=== PATIENT | female | born 1965 | race Caucasian/White ===

== ENCOUNTER → 2019-02-11 | Outpatient (CLI) | payer OTHER | END | disposition home or self-care (01) | LOC: CFH 14:01 | PROVIDERS: ATTEND Family Medicine | DX: Z12.31 Encounter for screening mammogram for malignant neoplasm of breast (principal) | CPT/HCPCS: 77063; 77067 ==

== ENCOUNTER 2020-06-17 16:01 | Outpatient (CLI) | payer OTHER | END 2020-06-17 23:59 | disposition home or self-care (01) | LOC: CFH 16:01 | PROVIDERS: ATTEND Family Medicine | DX: Z12.31 Encounter for screening mammogram for malignant neoplasm of breast (principal) | CPT/HCPCS: 77067 ==

== ENCOUNTER → 2020-11-12 | Outpatient (CLI) | payer OTHER | END | disposition home or self-care (01) | LOC: RAD 12:53 | PROVIDERS: ATTEND Family Medicine | DX: J81.1 Chronic pulmonary edema (principal) | CPT/HCPCS: 71046 ==

== ENCOUNTER 2020-12-04 09:20 | Outpatient (CLI) | payer OTHER | END 2020-12-04 23:59 | disposition home or self-care (01) | LOC: CFH 09:20 | PROVIDERS: ATTEND Family Medicine | DX: E89.41 Symptomatic postprocedural ovarian failure (principal) | CPT/HCPCS: 77080 ==